=== PATIENT | female | born 1965 | race Caucasian/White ===

== ENCOUNTER 2022-06-19 13:19 | Emergency (ER) | payer OTHER ==
[2022-06-19] VITALS (12 sets, daily range): BP systolic 95–114; BP diastolic 59–81
[~2022-06-19] VITALS: Ht 170.2 cm; Wt 102.0 kg
[2022-06-19] MEDS ORDERED: METFORMIN HCL1000 MG PO (13:29)
[2022-06-19] MEDS ORDERED: OZEMPIC2 MG IJ (13:31)
[2022-06-19] MEDS ORDERED: VENLAFAXINE75 M2 PO (13:31)
[2022-06-19] MEDS ORDERED: TELMISARTAN80 MG PO (13:32)
[2022-06-19] MEDS ORDERED: PROTONIX40 M2 PO (13:33)
[2022-06-19] MEDS ORDERED: ROSUVASTATIN CAL5 MG PO (13:33)
[2022-06-19 14:03] LABS: BASO% 0.3 % (0-3); EOS% 0.6 % (0-8); HEMATOCRIT 42.9 % (37.0-47.0); HEMOGLOBIN 13.5 g/dl (12.0-16.0); IMMATURE GRANULOCYTES 0.1 % (0.0-5.0); LYMPH% 14.2 % (15-41); MEAN CELL VOLUME 96.6 fL CALC (80.0-100.0); MEAN CORPUSCULAR HGB 30.4 pG CALC (26.0-32.0); MEAN CORPUSCULAR HGB CONC 31.5 g/dL CAL (32.0-36.0); MONO% 5.9 % (2-13); NEUT# 11.23 thou/uL (2.00-7.15); NEUT% 78.9 % (42-76); RED BLOOD COUNT 4.44 mill/uL (4.20-5.60); RED CELL DISTRI WIDTH 13.8 % (11.5-15.5)
[2022-06-19 14:18] LABS: ALBUMIN 4.7 g/dL (3.2-5.0); ALKALINE PHOSPHATASE 83 u/l (38-126); ANION GAP 18 (6-22 (CALC)); BILIRUBIN, TOTAL 0.8 mg/dL (0.02-1.3); BUN 17 mg/dL (7-17); BUN/CREATININE RATIO 18 (12-20 (CALC)); CARBON DIOXIDE 19 mmol/l (22-30); CHLORIDE 106 mmol/l (95-108); CREATININE 0.9 mg/dL (0.5-1.0); GFR FOR AFR.AMER. > 60 ML/MIN (>=60 (CALC)); GFR OTHER RACES > 60 ML/MIN (>=60 (CALC)); LIPASE 207 u/l (23-300); POTASSIUM 4.3 mmol/l (3.5-5.1); SGOT/AST 158 u/l (14-36); SODIUM 139 mmol/l (137-146); TOTAL PROTEIN 8.6 g/dL (6.3-8.2)
[2022-06-19] MEDS ORDERED: ZOFRAN4 MG/TAB PO (16:40)
[2022-06-19 17:09] LABS: URINE BLOOD DIPSTICK NEGATIVE (NEGATIVE); URINE GLUCOSE - DIPSTICK NEGATIVE (NEGATIVE); URINE KETONE NEGATIVE (NEGATIVE); URINE LEUK ESTERASE NEGATIVE (NEGATIVE); URINE PH 6.5 (4.5-8.0); URINE PROTEIN - DIPSTICK NEGATIVE (NEG-TRACE); URINE SPECIFIC GRAVITY 1.025
[2022-06-19 17:11] LABS: URINE BILIRUBIN - DIPSTICK SMALL (NEGATIVE); URINE NITRITE - DIPSTICK NEGATIVE (Negative)
[2022-06-19 17:12] LABS: URINE COLOR DK. YELLOW
== END 2022-06-19 17:01 | disposition home or self-care (01) | DRG 392 ==
LOC: ED 13:19
PROVIDERS: Family Medicine
DX: R11.2 Nausea with vomiting, unspecified (principal); E11.9 Type 2 diabetes mellitus without complications; I10 Essential (primary) hypertension; Z20.822 Contact with and (suspected) exposure to COVID-19